=== PATIENT | female | born 1990 ===

== ENCOUNTER 2020-10-26 17:52 | Outpatient (REF) | payer OTHER, SELFPAY ==
[2020-10-26 18:34] LABS: Influenza A PCR NEGATIVE (Negative); Influenza B PCR NEGATIVE (Negative); Resp Syncy Virus RNA Qual PCR NEGATIVE (Negative); SARS COV2 PCR INHOUSE NEGATIVE (Negative)
== END 2020-10-26 17:53 | disposition home or self-care (01) ==
LOC: HO.LNP 17:52
PROVIDERS: Visit Provider Family Medicine
DX: Z20.822 Contact with and (suspected) exposure to COVID-19 (principal); H66.90 Otitis media, unspecified, unspecified ear
CPT/HCPCS: 0241U

== ENCOUNTER 2021-03-04 14:07 | Outpatient (REF) | payer OTHER, SELFPAY | END 2021-03-04 14:08 | disposition home or self-care (01) | LOC: HO.LAB 14:07 | PROVIDERS: Visit Provider Hospitalist | DX: J06.9 Acute upper respiratory infection, unspecified (principal); Z20.822 Contact with and (suspected) exposure to COVID-19 | CPT/HCPCS: U0003; U0005 ==

== ENCOUNTER 2021-06-07 10:06 | Outpatient (REF) | payer SELFPAY ==
[2021-06-07 14:49] LABS: Influenza A PCR NEGATIVE (Negative); Influenza B PCR NEGATIVE (Negative); Resp Syncy Virus RNA Qual PCR NEGATIVE (Negative); SARS COV2 PCR INHOUSE NEGATIVE (Negative)
== END 2021-06-07 10:07 | disposition home or self-care (01) ==
LOC: HO.LAB 10:06
PROVIDERS: Visit Provider Family Medicine
DX: Z20.822 Contact with and (suspected) exposure to COVID-19 (principal); B34.9 Viral infection, unspecified
CPT/HCPCS: 0241U

== ENCOUNTER 2022-05-11 09:27 | Outpatient (REF) | payer OTHER, SELFPAY ==
[2022-05-13 02:04] LABS: HPV mRNA E6/E7 rflx Not Detected (Not Detected)
== END 2022-05-11 09:28 | disposition home or self-care (01) ==
LOC: HO.LNP 09:27
PROVIDERS: Visit Provider Advanced Practice Midwife
DX: Z01.419 Encounter for gynecological examination (general) (routine) without abnormal findings (principal); Z11.51 Encounter for screening for human papillomavirus (HPV)
CPT/HCPCS: 87624; 88142

== ENCOUNTER 2022-05-11 10:30 | Outpatient (REF) | payer OTHER, SELFPAY ==
[2022-05-11 11:56] LABS: Hematocrit 38.7 % (37.0-47.0); Hemoglobin 13.2 g/dl (12.0-16.0); Mean Corpuscular HGB Conc 34.1 g/dl (31.0-35.0); Mean Corpuscular Hemoglobin 30.6 pg (27.0-33.0); Mean Corpuscular Volume 89.8 fL (80.0-98.0); Mean Platelet Volume 12.4 fL (9.4-12.3); Platelet Count 250 X10*3/uL (160-400); Red Blood Count 4.31 X10*6/uL (4.20-5.50); Red Cell Distribution Width 11.6 % (11.0-16.0); White Blood Count 8.6 X10*3/uL (4.8-10.8)
[2022-05-11 12:15] LABS: Glucose Random 83 mg/dL (60-115)
[2022-05-11 12:20] LABS: Thyroid Stimulating Hormone 0.56 uIU/mL (0.32-4.0)
[2022-05-11 12:22] LABS: HBsAGNum1 0.46 S/CO (0.00-0.99); HIV AB/AG Nonreactive (Nonreactive); HIV Num 1 0.05 S/CO (0.00-0.99); Hepatitis B Surface Antigen Negative (Negative); ~HepC Num1 0.13 S/CO (0.00-0.79); ~Hepatitis C Antibody Nonreactive (Nonreactive)
[2022-05-11 12:23] LABS: Syphilis Screen Nonreactive (Nonreactive)
[2022-05-11 13:39] LABS: CT PCR NOT DETECTED (Not Detect.); NG PCR NOT DETECTED (Not Detect.)
[2022-05-12 10:56] LABS: BV Int Neg Control Negative (Negative); BV Int Pos Control Positive (Positive)
[2022-05-12 18:49] LABS: Lutenizing Hormone 5.8 mIU/mL
[2022-05-12 19:58] LABS: DHEA Sulfate 222 mcg/dL (19-237)
[2022-05-17 17:09] LABS: Testosterone, Free 2.1 pg/mL (0.1-6.4); Testosterone, Total 31 ng/dL (2-45)
== END 2022-05-11 10:31 | disposition home or self-care (01) ==
LOC: HO.LAB 10:30
PROVIDERS: PCP Physician Assistant; Visit Provider Advanced Practice Midwife
DX: Z01.419 Encounter for gynecological examination (general) (routine) without abnormal findings (principal); Z11.4 Encounter for screening for human immunodeficiency virus [HIV]; E28.2 Polycystic ovarian syndrome; Z20.2 Contact with and (suspected) exposure to infections with a predominantly sexual mode of transmission; Z78.9 Other specified health status
CPT/HCPCS: 0353U; 82627; 82947; 83002; 84402; 84403; 84443; 85027; 86780; 86803; 87340; 87389; 87480; 87510; 87660

== ENCOUNTER 2023-05-17 09:01 | Outpatient (AMB) | payer OTHER, SELFPAY ==
--- NOTE | 2023-05-17 09:10 | A.OFFVIS_ITS ---
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: No Information Interpreted: non-clinical & clinical Mid Level Practitioner: Mid Level Practitioner Present (Aidyn) Allergies acetaminophen [Theraflu Day-Night Cold,Cough] Allergy (Unknown, Verified 05/17/23 09:14) anxiety bisacodyl [Dulcolax (bisacodyl)] Allergy (Unknown, Verified 05/17/23 09:14) vomiting dextromethorphan [Theraflu Day-Night Cold,Cough] Allergy (Unknown, Verified 05/17/23 09:14) Anxiety diphenhydramine [Theraflu Day-Night Cold,Cough] Allergy (Unknown, Verified 05/17/23 09:14) Anxiety phenylephrine [Theraflu Day-Night Cold,Cough] Allergy (Unknown, Verified 05/17/23 09:14) Anxiety pseudoephedrine [Sudafed] Allergy (Unknown, Verified 05/17/23 09:14) vomiting Medication List - Last Reconciled 05/17/23 by Josiane Dobbins CNM clindamycin-benzoyl peroxide 1.2 %(1 % base) -5 % 1 appl topical DAILY loratadine (Allergy Relief (loratadine)) 10 mg PO DAILY Is last menstrual period known: Yes Last menstrual period: 04/22/23 Post menopausal: No HPI Annual HPI Details Patient is here for stucco plasterer annual exam. She has no current complaints though she has been noticing little twinges right and left side. She has been noticing for route 6 months coincidentally around 6 months ago she stopped using the patch for control she had an what she calls an allergic reaction to the patch and had a rash where it was she denies a history of eczema however she does have dry skin and with some eczematous features and it was previously noted in the chart. She does get very dry skin in the winter. Anyway she stopped the patch and she was not sexually active so she does not need anything now and has not been sexually active since then she is open to STI testing. She had a negative Pap smear last year and she thought she had an abnormal Pap in the past and Dr. Mejia tried to do follow-up testing but she kept bleeding and he could not get in so he ended up putting Monsel's solution on and said they would just watch and wait review of the records reveals no abnormal Pap in the system. It appears that he was planning to do a 8 in endometrial biopsy because of her abnormal bleeding pattern related to her PCOS. If the patient became sexually active again she would use condoms she is averse to having anything inside her like an IUD or even tampons, she thinks she gets regular periods now though the last 1 was a couple of weeks late she was under stress because of her sick dog. PFSH Surgical History Hx of tonsillectomy Social History Alcohol intake: current Alcohol intake frequency: holidays/special occasions only Female Reproductive History Menstrual Age of Menarche: 13 Duration of menses: 3-5 days Date of last menstrual period: 04/22/23 control method: none Total pregnancies: 0 Date of last pap smear: 05/11/22 (negative) History of abnormal pap smear: No Physical Exam Vital Signs: Last Vital Signs BP 116/72 05/17/23 09:13 BMI result Body Mass Index 24.7 Const General: healthy appearing, comfortable, no acute distress, well developed and alert Nutritional Appearance: average body habitus Orientation/consciousness: patient oriented x3 Limitations: no limitations HEENT Head: Yes normocephalic Neck Neck: Yes normal visual inspection Chest Chest palpation & inspection: normal inspection of the chest Breast/axilla inspection: normal inspection of the breasts and normal inspection of the axillae Breast/axilla palpation: normal palpation of the breasts and normal palpation of the axillae Resp Effort & Inspection: normal respiratory effort GI Inspection: Yes normal to inspection, No Abdominal wall edema and No distended Palpation (GI): Soft to palpation and nontender General: Yes bladder normal to palpation External Female Exam: normal external appearance and normal appearance of the urethra Speculum Exam - Vagina: normal appearance of the vagina, normal palpation and normal vaginal discharge Speculum Exam - Cervix: normal appearance of the cervix, normal palpation and nontender Bimanual exam- vagina & uterus: normal bimanual exam, normal palpation, uterine size normal, bladder normal to palpation, consistency normal, normal palpation, uterine mobility normal, uterine shape normal, No Cervical tenderness present, non-tender and no cervical motion tenderness Bimanual Exam- Adnexa, other: normal adnexae, no masses, normal and No adnexal tenderness Neuro General: patient oriented x3 Assessment & Plan Assessment & Plan (1) Cervical cancer screening: Comment: Patient states history of abnormal.NO HX OF ABNL FOUND, FIRST PAP NEG 2014 .. 05/11/2022 Pap is negative with negative HPV. Code(s): Z12.4 - Encounter for screening for malignant neoplasm of cervix (2) Well woman exam with routine gynecological exam: Code(s): Z01.419 - Encounter for gynecological examination (general) (routine) without abnormal findings (3) Potential exposure to STD: Code(s): Z20.2 - Contact with and (suspected) exposure to infections with a predominantly sexual mode of transmission (4) History of PCOS: Code(s): Z87.42 - Personal history of other diseases of the female genital tract (5) Eczematous dermatitis: Code(s): L30.9 - Dermatitis, unspecified Plan Please see HPI for the full discussion of this visit. Teaching done about normal cycles and ovulation and what it feels like and also cervical mucus changes throughout the cycle in the absence of hormonal method of control. Patient appears to be in luteal phase currently though her jocelyn is telling her something different LMP 04/22/2023 -----Discussed in this visit the following: healthy balanced diet, regular and consistent exercise, getting recommended health screens, doing the best she can for her particular health concerns, kegel exercises, pap smear screening and followup recommendations, mammography screening and SBE, normal changes in cycles in her life stage--- . Orders: Orders Hepatitis B Surface Antigen Today Z20.2 - Contact with and (suspected) exposure to infections with a predominantly sexual mode of transmission Hepatitis C Antibody Today Z20.2 - Contact with and (suspected) exposure to infections with a predominantly sexual mode of transmission HIV Ab/Ag Today Z20.2 - Contact with and (suspected) exposure to infections with a predominantly sexual mode of transmission Syphilis Screen Today Z20.2 - Contact with and (suspected) exposure to infections with a predominantly sexual mode of transmission Coding Level of Care Code Est Pt Prev Care [id number]([id number]) Diagnoses Cervical cancer screening Z12.4 Well woman exam with routine gynecological exam Z01.419 Potential exposure to STD Z20.2 History of PCOS Z87.42 Eczematous dermatitis L30.9
[2023-05-17 09:13] VITALS: BP 116/72; BMI 24.7
== END 2023-05-17 10:04 | disposition home or self-care (01) ==
PROVIDERS: Visit Provider Advanced Practice Midwife
DX: Z12.4 Encounter for screening for malignant neoplasm of cervix (principal); Z01.419 Encounter for gynecological examination (general) (routine) without abnormal findings; Z20.2 Contact with and (suspected) exposure to infections with a predominantly sexual mode of transmission; Z87.42 Personal history of other diseases of the female genital tract; L30.9 Dermatitis, unspecified
CPT/HCPCS: 99395

== ENCOUNTER 2023-05-17 09:01 | Outpatient (REF) | payer OTHER, SELFPAY ==
[2023-05-18 11:31] LABS: CT PCR NOT DETECTED (Not Detect.); NG PCR NOT DETECTED (Not Detect.)
[2023-05-18 15:42] LABS: BV Int Neg Control Negative (Negative); BV Int Pos Control Positive (Positive)
== END 2023-05-17 09:02 | disposition home or self-care (01) ==
LOC: HO.LNP 09:01
PROVIDERS: Visit Provider Advanced Practice Midwife
DX: Z20.2 Contact with and (suspected) exposure to infections with a predominantly sexual mode of transmission (principal)
CPT/HCPCS: 0353U; 87480; 87510; 87660

== ENCOUNTER 2023-05-17 10:08 | Outpatient (REF) | payer OTHER, SELFPAY ==
[2023-05-17 12:45] LABS: HBsAGNum1 0.42 S/CO (0.00-0.99); HIV AB/AG Nonreactive (Nonreactive); HIV Num 1 0.06 S/CO (0.00-0.99); Hepatitis B Surface Antigen Negative (Negative); ~HepC Num1 0.11 S/CO (0.00-0.79); ~Hepatitis C Antibody Nonreactive (Nonreactive)
[2023-05-17 12:50] LABS: Syphilis Screen Nonreactive (Nonreactive)
== END 2023-05-17 10:09 | disposition home or self-care (01) ==
LOC: HO.HHCL 10:08
PROVIDERS: Visit Provider Advanced Practice Midwife
DX: Z11.4 Encounter for screening for human immunodeficiency virus [HIV] (principal); Z20.2 Contact with and (suspected) exposure to infections with a predominantly sexual mode of transmission
CPT/HCPCS: 36415; 86780; 86803; 87340; 87389

== ENCOUNTER 2023-08-23 17:52 | Emergency (ER) | payer OTHER, SELFPAY ==
--- NOTE | ~2023-08-23 | US_ITS ---
EXAMINATION: US PELVIS CLINICAL INFORMATION: Question of ovarian torsion COMPARISON: None available. TECHNIQUE: Ultrasound of the pelvis is performed using both transabdominal and transvaginal transducers along with Doppler. Transvaginal imaging is performed due to inadequate visualization transabdominally. FINDINGS: Uterus: The uterus is anteverted and measures 6.6 x 2.9 x 3.7 cm. The double wall endometrial thickness is 4 mm. The uterus is smooth in contour and has normal myometrial echogenicity. No visible fibroid. Nabothian cysts are present in the cervix. Adnexa: Both ovaries are visualized. There is normal color flow to the adnexa. There is no ovarian torsion. There is no pelvic ascites or fluid collection. Right ovary measures 3.4 x 1.9 x 1.8 cm for a volume of 6.1 mL Left ovary measures 2.5 x 2.0 x 1.9 cm. For a volume of 5.0 mL US/US pelvic ovarian doppler IMPRESSION: Normal exam. No evidence of ovarian torsion.
--- NOTE | ~2023-08-23 | US_ITS ---
EXAMINATION: US PELVIS CLINICAL INFORMATION: Question of ovarian torsion COMPARISON: None available. TECHNIQUE: Ultrasound of the pelvis is performed using both transabdominal and transvaginal transducers along with Doppler. Transvaginal imaging is performed due to inadequate visualization transabdominally. FINDINGS: Uterus: The uterus is anteverted and measures 6.6 x 2.9 x 3.7 cm. The double wall endometrial thickness is 4 mm. The uterus is smooth in contour and has normal myometrial echogenicity. No visible fibroid. Nabothian cysts are present in the cervix. Adnexa: Both ovaries are visualized. There is normal color flow to the adnexa. There is no ovarian torsion. There is no pelvic ascites or fluid collection. Right ovary measures 3.4 x 1.9 x 1.8 cm for a volume of 6.1 mL Left ovary measures 2.5 x 2.0 x 1.9 cm. For a volume of 5.0 mL US/US pelvic and transvaginal IMPRESSION: Normal exam. No evidence of ovarian torsion.
[2023-08-23 18:08] VITALS: BP 139/85; PULSE 85; RESP 18; TEMP 36.9; O2SAT 99; BMI 24.8
--- NOTE | 2023-08-23 18:10 | ED_ITS ---
HPI - Female Genitourinary General Chief complaint: Urogenital-Female Stated complaint: pelvic pain, brown discharge Time Seen by Provider: 08/23/23 18:37 Source: patient Mode of arrival: ambulatory Limitations: no limitations History of Present Illness HPI Narrative: Patient is a 32-year-old female who presents emergency department for evaluation. She reports her last menstrual cycle was 08/01/2023. She reports over the past 2 days she began having brown vaginal discharge which is atypical for her midcycle despite her history of PCOS. She endorses increased vaginal discharge yesterday and today she began having left lower pelvic pain. She notices the pain to decrease slightly when she is sitting but if she is standing it becomes a constant dull pain. She reports that she has not been sexually active for at least 1 year and denies concern for sexually transmitted infections or . She denies fevers, chills, nausea, vomiting, back pain, dysuria, urinary frequency/urgency/hesitancy, constipation, diarrhea. She reports that she was evaluated at urgent care prior to arrival was advised to come to the emergency department to rule out ovarian torsion given her history of PCOS. Denies history of abnormal Pap smear Related Data Home Medications ?Medication ?Instructions ?Recorded ?Confirmed loratadine 10 mg tablet (Allergy 10 mg PO DAILY 10/26/20 05/17/23 Relief (loratadine)) clindamycin 1.2 % (1 % 1 appl topical DAILY 05/17/23 05/17/23 base)-benzoyl peroxide 5 % topical gel Allergies Allergy/AdvReac Type Severity Reaction Status Date / Time acetaminophen Allergy Unknown anxiety Verified 08/23/23 18:15 [Theraflu Day-Night Cold,Cough] bisacodyl Allergy Unknown vomiting Verified 08/23/23 18:15 [Dulcolax (bisacodyl)] dextromethorphan Allergy Unknown Anxiety Verified 08/23/23 18:15 [Theraflu Day-Night Cold,Cough] diphenhydramine Allergy Unknown Anxiety Verified 08/23/23 18:15 [Theraflu Day-Night Cold,Cough] phenylephrine Allergy Unknown Anxiety Verified 08/23/23 18:15 [Theraflu Day-Night Cold,Cough] pseudoephedrine [Sudafed] Allergy Unknown Anxiety Verified 08/23/23 18:15 Review of Systems 2 Review of Systems: Yes all other systems are reviewed and are negative [facility] Past Medical History Attestation statement: The following information was validated with the patient. Source: old records reviewed Surgical History Hx of tonsillectomy Social History Social History Alcohol intake: current Alcohol intake frequency: holidays/special occasions only Advance Directives: No Advance Directives Information Provided: No Do you have a plan to hurt others: No Plan Physical Exam 2 Vital Signs: Vital Signs: Last Vital Signs Temp 98.5 F 08/23/23 22:50 Pulse 80 08/23/23 22:50 Resp 20 08/23/23 22:50 BP 115/75 08/23/23 22:50 Pulse Ox 98 08/23/23 22:50 O2 Del Method Room Air 08/23/23 22:50 BMI result Body Mass Index 24.8 Appearance: Alert.?Oriented to person, place and time. No acute distress.?Normal affect. Eyes: Pupils equal, round and reactive to light.? ENT: Pharynx normal.?? Neck: Normal inspection.? Neck supple.?? CVS: Heart sounds normal. Normal heart rate and rhythm.? Pulses normal.?? Respiratory: No respiratory distress.? Lung sounds clear to auscultation bilaterally?? Abdomen: Soft with mild left lower quadrant tenderness upon palpation. Normoactive bowel sounds. No CVA tenderness Genitourinary:? Supervised by ED orthodontic technician assistant Marti. Normal external appearance of urethra.? No lesions/lacerations or discharge or tenderness noted. No Bartholin cyst noted.? Speculum exam: normal appearance/palpation of vagina normal. Brown tinged mucosal vaginal discharge. without vaginal swelling, erythema, laceratons.?No foreign bodies noted.? No vaginal tenderness noted.? Normal appearance of cervix. Normal palpation of cervix.? Cervical os is closed.? No abnormal cervical discharge noted.? No cervical lesion/mass.?? No cervical motion tenderness noted.? Negative chandelier sign.? Normal bimanual exam.? Uterine size normal. Uterine consistency normal.? Bladder normal to palpation. Normal adnexa. Normal rectovaginal exam. Skin: Skin warm and dry.? Normal skin color.? Extremities: No lower extremity edema.? Neuro: Moves all extremities spontaneously. Sensation intact bilaterally. Ambulates with normal steady gait. Course Course Course Narrative: This is a Rapid Medical Examination (RME) performed by Myranda Anthony PA-C in triage. Full HPI, ROS, assessment and treatment plan per primary provider in the Main ED. 32 yo female hx of PCOS here for eval of brown vaginal discharge x2 days and left sided pelvic pain which began today. Pelvic pain exacerbated with standing for long periods of time. seen at who sent her here for ovarian torsion r/o. reports 5/10 pelvic pain. LMP 08/01/23. She is not currently sexually active and does not use control. denies n/v, fever, chills. well appearing in triage. slightly ttp of left lower abdomen without rebound or guarding. Plan: labs, UA, pelvic ultrasound ordered Reevaluation(s) Reevaluation #1: Pelvic ultrasound without evidence of ovarian torsion, normal examination, no evidence of ruptured ovarian cyst. Suspect this is less likely acute abdominal pathology diverticulitis, colitis, obstruction, would defer CT of the abdomen and pelvis. She is tolerating oral intake. Urinalysis reveals no evidence of infection. At this time feel that she is stable for discharge home and outpatient follow-up with primary care/physician gynecologist provider. Medical Decision Making Medical Decision Making MDM Narrative: Patient is a 32-year-old female past medical history PCOS presenting to emergency department for evaluation of left lower quadrant abdominal pain and abnormal vaginal discharge as per HPI. Overall she appears well, nontoxic, afebrile. She has been tolerating oral intake. She has mild tenderness upon palpation and left lower quadrant but is without rigidity guarding, no rebound tenderness. Pelvic examination as per physical exam portion of this note, noted brown tinged mucosal discharge within the vaginal vault and surrounding the cervix. Cervix is not friable, without signs of acute cervicitis. Patient was amenable to having bacterial vaginosis panel/CT/NG burn/ecchymosis testing. Reviewed serum labs CBC is without leukocytosis anemia or thrombocytopenia. No electrolyte derangement. No CLAUS. LFTs within normal range lipase within normal range. Differential Diagnosis Differential Diagnoses: The differential diagnosis associated with the presentation includes (Ovulatory discharge, PCOS, ruptured ovarian cyst, ovarian torsion, STI. Examination does not appear consistent with PID.) Admission/Observation Consideration of admission/observation: Escalation of care including admission/observation considered Lab Data MDM Lab Attestation statement: I reviewed the patient's lab results. (See narrative above) 08/23/23 18:49 08/23/23 18:49 Labs: Lab Results 08/23/23 08/23/23 Range/Units 18:49 21:57 WBC 9.7 (4.8-10.8) X10*3/uL RBC 4.21 (4.20-5.50) X10*6/uL Hgb 13.2 (12.0-16.0) g/dl Hct 38.6 (37.0-47.0) % MCV 91.7 (80.0-98.0) fL MCH 31.4 (27.0-33.0) pg MCHC 34.2 (31.0-35.0) g/dl RDW 11.8 (11.0-16.0) % Plt Count 251 (160-400) X10*3/uL MPV 11.8 (9.4-12.3) fL Immature Gran % (Auto) 0.2 (0.0-0.4) % Neut % (Auto) 53.4 (45-73) % Lymph % (Auto) 33.2 (20-40) % [place] % (Auto) 7.7 (2-11) % Eos % (Auto) 4.5 H (0-4) % Baso % (Auto) 1.0 (0-2) % Lymph # (Auto) 3.2 (1.2-4.9) X10*3/uL [place] # (Auto) 0.8 (0.1-1.2) X10*3/uL Eos # (Auto) 0.4 (0.0-0.4) X10*3/uL Baso # (Auto) 0.1 (0.0-0.2) X10*3/uL Abs Immat Gran (auto) 0.02 (0.00-0.03) X10*3/uL Absolute Neuts (auto) 5.2 (2.0-8.3) x10*3/uL Absolute Nucleated RBC 0.000 (0.0-0.012) X10*3/uL Nucleated RBC % (auto) 0.0 (0.0-0.2) /100WBC Sodium 141 (135-145) mmol/L Potassium 4.2 (3.3-5.1) mmol/L Chloride 106 (96-108) mmol/L Carbon Dioxide 24 (22-29) mmol/L Anion Gap 15 (12-20) BUN 13 (9-16) mg/dL Creatinine 0.77 (0.5-1.4) mg/dL Estim Creat Clear Calc 94.4 Estimated GFR > 60 Random Glucose 84 (60-115) mg/dL Calcium 9.8 (8.4-10.2) mg/dL Magnesium 1.8 (1.6-2.6) mg/dL Total Bilirubin 0.2 (0.0-1.0) mg/dL AST 19 (5-31) U/L ALT 15 (0-31) U/L Alkaline Phosphatase 61 (39-117) U/L Total Protein 8.5 H (6.5-8.0) g/dL Albumin 4.4 (3.5-5.0) g/dL Lipase 34 (8-78) U/L Urine Color Yellow Urine Appearance Clear Urine pH 6.5 (5.0-9.0) Ur Specific [place] 1.020 (1.005-1.025) Urine Protein Negative (Neg-Trace) mg/dL Urine Glucose (UA) Negative (Negative) mg/dL Urine Ketones Negative (Negative) mg/dL Urine Blood Small (1+) H (Negative) Urine Nitrite Negative (Negative) Ur Leukocyte Esterase Negative (Negative) Urine RBC 0-2 (0-2) /HPF Urine WBC 0-5 (0-5) /HPF Ur Squamous Epith Cells 0-2 (0-2) /HPF Urine Bacteria None Seen (None Seen) Hyaline Casts 0-2 (0-2) /LPF Urine Test NEGATIVE (NEGATIVE) Radiology Impression Discussion of test interpretation with radiology: I have reviewed the radiologist's reading. External Record Review External record reviewed: Outpatient record Discharge Plan Discharge Clinical Impression: Bloody vaginal discharge Patient Disposition: Home, Self-Care Instructions: Vaginal Discharge (ED) Additional Instructions: No evidence of ovarian torsion on ultrasound, no large cysts. As discussed, testing for infections will not result today, there any upon presents you will be contacted by the hospital. Follow-up with your PCP/physician gynecologist provider. Prescriptions: No Action loratadine [Allergy Relief (loratadine)] 10 mg tablet 10 mg PO DAILY clindamycin-benzoyl peroxide 1.2 %(1 % base) -5 % gel 1 appl topical DAILY Interventions: ED Discharge Assessment Last Done: 08/23/23 22:50 Discharge Date/Time: 08/23/23 22:51 Print Language: Bulgarian
[2023-08-23 18:57] LABS: MANUAL DIFF FLAG NO
[2023-08-23 18:58] LABS: Basophils Absolute Auto 0.1 X10*3/uL (0.0-0.2); Eosinophils Absolute Auto 0.4 X10*3/uL (0.0-0.4); Eosinophils Percent Auto 4.5 % (0-4); Hematocrit 38.6 % (37.0-47.0); Hemoglobin 13.2 g/dl (12.0-16.0); Imm Gran Abs Auto 0.02 X10*3/uL (0.00-0.03); Imm Gran Pct Auto 0.2 % (0.0-0.4); Lymphocytes Absolute Auto 3.2 X10*3/uL (1.2-4.9); Lymphocytes Percent Auto 33.2 % (20-40); Mean Corpuscular HGB Conc 34.2 g/dl (31.0-35.0); Mean Corpuscular Hemoglobin 31.4 pg (27.0-33.0); Mean Corpuscular Volume 91.7 fL (80.0-98.0); Mean Platelet Volume 11.8 fL (9.4-12.3); Monocytes Absolute Auto 0.8 X10*3/uL (0.1-1.2); Monocytes Percent Auto 7.7 % (2-11); Neutrophils Absolute Auto 5.2 x10*3/uL (2.0-8.3); Neutrophils Percent Auto 53.4 % (45-73); Platelet Count 251 X10*3/uL (160-400); Red Blood Count 4.21 X10*6/uL (4.20-5.50); Red Cell Distribution Width 11.8 % (11.0-16.0); White Blood Count 9.7 X10*3/uL (4.8-10.8)
[2023-08-23 19:14] LABS: Alanine Aminotransferase 15 U/L (0-31); Albumin Level 4.4 g/dL (3.5-5.0); Alkaline Phosphatase 61 U/L (39-117); Anion Gap 15 (12-20); Aspartate Amino Transferase 19 U/L (5-31); Bilirubin Total 0.2 mg/dL (0.0-1.0); Blood Urea Nitrogen 13 mg/dL (9-16); Calcium 9.8 mg/dL (8.4-10.2); Carbon Dioxide 24 mmol/L (22-29); Chloride 106 mmol/L (96-108); Creatinine Clr Calc Pharmacy 94.4; Estimated Glomerular Filt Rate > 60; Glucose Random 84 mg/dL (60-115); Lipase 34 U/L (8-78); Magnesium 1.8 mg/dL (1.6-2.6); Potassium 4.2 mmol/L (3.3-5.1); Sodium 141 mmol/L (135-145); Total Protein 8.5 g/dL (6.5-8.0)
[2023-08-23 22:07] LABS: Appearance Urine Clear; Color Urine Yellow; Glucose Urine UA Negative (Negative); Leukocyte Esterase Urine Negative (Negative); Nitrite Urine Negative (Negative); PH 6.5 (5.0-9.0); UMIC TRIGGER UACC YES; Urine Blood Small (1+) (Negative); Urine Ketones Negative (Negative); Urine Protein Negative (Neg-Trace)
[2023-08-23 22:10] LABS: UPreg QC Valid YES; Urine Pregnancy NEGATIVE (NEGATIVE)
[2023-08-23 22:33] VITALS: BP 115/75; PULSE 80; RESP 20; TEMP 36.9; O2SAT 98
[2023-08-23 22:50] VITALS: BP 115/75; PULSE 80; RESP 20; TEMP 36.9; O2SAT 98
[2023-08-23 22:54] LABS: Bacteria Urine None Seen (None Seen); Hyaline Casts Urine 0-2 /LPF (0-2); RBC Urine 0-2 /HPF (0-2); Squamous Epithelial Cell Urine 0-2 /HPF (0-2); WBC Urine 0-5 /HPF (0-5)
[2023-08-24 06:07] LABS: CT PCR NOT DETECTED (Not Detect.); NG PCR NOT DETECTED (Not Detect.)
[2023-08-24 10:49] LABS: Bacterial Vaginosis PCR NEGATIVE (Negative); Candida Group PCR NOT DETECTED (Not Detect); Candida glab krusei PCR NOT DETECTED (Not Detect); Trichomonas vaginalis PCR NOT DETECTED (Not Detect)
== END 2023-08-23 22:51 | disposition home or self-care (01) ==
PROVIDERS: Nurse Practitioner Family; Physician Assistant Medical; Emergency Provider Internal Medicine
DX: N89.8 Other specified noninflammatory disorders of vagina (principal); E28.2 Polycystic ovarian syndrome; N88.8 Other specified noninflammatory disorders of cervix uteri; R10.2 Pelvic and perineal pain
CPT/HCPCS: 0352U; 36415; 76830; 76856; 80053; 81001; 81025; 83690; 83735; 85025; 87491; 87591; 93975; 99283; 99284

== ENCOUNTER 2023-11-17 10:13 | Outpatient (AMB) | payer OTHER, SELFPAY ==
--- NOTE | 2023-11-17 10:18 | MHC.PC.OV ---
Vital Signs 11/17/23 10:30 Height 5 ft 5 in Weight 154 lb 2 oz BMI 25.6 BP 112/78 Blood Pressure Location Lt brachial Position Sitting Respiration 16 Pulse 96 Pulse Source Pulse Oximeter Temp 97.9 F Temp Source Oral Pulse Oximetry (%) 96 Oxygen Delivery Method Room Air Intake Visit Reasons: Annual Physical Intake Note: patient here for new patient visit and to establish care. 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 Is last menstrual period known: Yes Last menstrual period: 09/18/23 Post menopausal: No Patient : No Allergies acetaminophen [Theraflu Day-Night Cold,Cough] Allergy (Unknown, Verified 11/17/23 10:33) anxiety bisacodyl [Dulcolax (bisacodyl)] Allergy (Unknown, Verified 11/17/23 10:33) vomiting dextromethorphan [Theraflu Day-Night Cold,Cough] Allergy (Unknown, Verified 11/17/23 10:33) Anxiety diphenhydramine [Theraflu Day-Night Cold,Cough] Allergy (Unknown, Verified 11/17/23 10:33) Anxiety phenylephrine [Theraflu Day-Night Cold,Cough] Allergy (Unknown, Verified 11/17/23 10:33) Anxiety pseudoephedrine [Sudafed] Allergy (Unknown, Verified 11/17/23 10:33) Anxiety Medication List - Last Reconciled 11/17/23 by Bennett Parr CNP clindamycin-benzoyl peroxide 1.2 %(1 % base) -5 % 1 appl topical DAILY fluticasone propionate 50 mcg/actuation 2 sprays intranasal DAILY loratadine (Allergy Relief (loratadine)) 10 mg PO DAILY spironolactone 50 mg PO BID Tobacco use date assessed: 11/17/23 Dental Screening Dental Screen Date: 11/17/23 Did you have a dental visit in the last 12 months?: No Did you have a dental problem in the last 6 months where you did not have access to dental care?: No Was dental information given to patient?: Patient declined HPI HPI Comments History of Present Illness Details New patient Prior PCP:?Transfer [facility] Last office visit/CPE: Over 2 years Acute issue(s): Acne -She is on Spironolactone 50 mg twice daily, and clindamycin-benzoyl peroxide ointment PCOS -She is on Spironolactone 50 mg twice daily Left ankle sprain -She tripped on the steps in her home 3 weeks ago. She was evaluated in an urgent care, xray was normal. Reports dull pain to the ankle; taking Tylenol and Ibuprofen Anxiety/depression -Reports controlled anxiety and depressive symptoms. Have never been on psychotropic medications. Reports history of psychotherapy at childhood and 5-6 years ago; she does not have time to continue psychotherapy -Sleep has been an issue. She has trouble falling asleep. She sleeps an average of 7-8 hours and generally feels tired She notes that she does not make healthy dietary choices. She snacks a lot and consume significant amount of soda drinks She reports recurrent sinus infection. Her nasal discharges are often bloody. No acute symptoms at this time. She requests an ENT referral PMHx: PCOS, acne, GERD, IBS, sinusitis, anxiety, depression, eating disorder SurgHx: Tonsillectomy, tympanostomy, FESS FHx: Mom: Asthma. MGM: HDL, HTN, mental illness. MGF: HTN, HLD, DM, prostate cancer, alcoholism SocHx: Nonsmoker. Drinks alcohol 1 drink every 3-6 months. No recreational drugs Last eye exam was at childhood Last Pap smear test was in 05/11/2022 Last Tdap was in 08/15/2018 She is followed by [facility] [place] [facility] Medical History (Updated 11/17/23 @ 12:11 by Bennett Parr CNP) Depression Anxiety Acid reflux IBS (irritable bowel syndrome) Acne Sprained ankle Sinusitis Surgical History (Updated 11/17/23 @ 11:10 by Oneyda Cazares) H/O tympanostomy S/P FESS (functional endoscopic sinus surgery) Hx of tonsillectomy Family History (Updated 11/17/23 @ 11:17 by Oneyda Cazares) Maternal Grandfather Alcohol abuse High blood pressure High cholesterol Diabetes Prostate cancer Brother FH: mental illness Mother Asthma Maternal Grandmother High blood pressure High cholesterol FH: mental illness Social History Housing: House Alcohol intake: current Alcohol intake frequency: holidays/special occasions only Patient Tobacco Use Status: Never used Tobacco e-Cigarette/Vaping Use: Never Used Second Hand Smoke Exposure: No service: No Current occupational status: employed Current occupation: [employer] Current occupational exposures/hazards: No Cognitive needs: No Hearing needs: Yes Vision needs: No Female Reproductive History Menstrual Age of Menarche: 13 Date of last menstrual period: 09/18/23 Questionnaire PHQ-9 Over the last 2 weeks, how often have you been bothered by any of the following problems? 1. Little interest or pleasure in doing things: several days 2. Feeling down, depressed, or hopeless: several days 3. Trouble falling or staying asleep, or sleeping too much: more than half the days 4. Feeling tired or having little energy: nearly every day 5. Poor appetite or overeating: several days 6. Feeling bad about yourself - or that you are a failure or have let yourself or your family down: several days 7. Trouble concentrating on things, such as reading the newspaper or watching television: more than half the days 8. Moving or speaking so slowly that other people could have noticed. Or the opposite - being so fidgety or restless that you have been moving around a lot more than usual: more than half the days 9. Thoughts that you would be better off or of hurting yourself in some way: not at all Total score: 13 Depression Screening Interpretation: Positive Depression Screening Follow-up: Existing condition Depression Screening Done: Yes [id number] - PHQ-9 Billing: Yes Source: Developed by Drs. Christopher Ramos, Elva Kaplan, Zi Moore and colleagues, with an educational mally from [employer]. Thrive Questionnaire Date Thrive assessed: 11/17/23 I am a: Patient What is your living situation today?: I have a steady place to live Within the past 12 months, did the food you bought not last and you didn't have the money to get more?: Never true Within the past 12 months, did you worry whether your food would run out before you got money to buy more?: Never true Do you have trouble paying for medicines?: No Do you have trouble getting transportation to medical appointments?: No Do you have trouble paying your heating and electricity bill?: No Do you have trouble taking care of your child, family member or friend?: No Do you have trouble with day-to-day activities such as bathing, preparing meals, shopping, managing finances, etc.?: No Are you currently unemployed and looking for a job?: No Are you interested in more education?: No Please select the resources that you would like help with: None Currently or been in a relationship where the following occur: No concerns reported THRIVE Score: 0 AUDIT C Alcohol Use Questionnaire (AUDIT-C) 1. How often do you have a drink containing alcohol?: Monthly or less 2. How many drinks containing alcohol do you have on a typical day when you are drinking?: 1 or 2 3. How often do you have six or more drinks on one occasion?: Never Total Score: 1 AZ-7 AMB Questionnaire AZ-7 Date AZ - 7 assessed: 11/17/23 Feeling nervous, anxious, or on edge: 1 = Several days Not being able to stop or control worryin = Several days Worrying too much about different things: 2 = More than half the days Trouble relaxin = Nearly every day Being so restless that it is hard to sit still: 1 = Several days Becoming easily annoyed or irritable: 0 = Not at all Feeling afraid as if something awful might happen: 1 = Several days Total AZ-7 score (0-4 normal; 5-9 mild; 10-14 moderate; 15-21 severe): 9 Source: Developed by Drs. Christopher Ramos, Elva Kaplan, Zi Moore and colleagues, with an educational mally from [employer]. AZ-7 Assessment Billing AZ-7 Assessment Tool: AZ-7 Assessment 44708 Review of Systems Const Details: Denies chills, Reports fatigue, Denies fever(s), Denies headache(s) and Denies weakness HEENT Denies change in vision, Denies dizziness, Denies headache(s), Denies hearing loss, Denies nasal congestion, Denies sinus pain, Denies sinus pressure and Denies sore throat Card Denies chest pain, Denies lightheadedness, Denies dyspnea and Denies other (palpitations) Resp Denies cough, Denies dyspnea and Denies wheezing GI Denies abdominal pain, Denies melena, Denies hematochezia, Denies change in bowel habits, Denies dyspepsia and Denies nausea Denies hematuria and Denies dysuria Musc Denies abnormal gait, Denies numbness and Denies tingling Skin/Breast Denies rash, Denies unusual bruising and Denies wounds Neuro Denies abnormal gait, Denies dizziness, Denies headache(s), Denies memory loss, Denies numbness, Denies Sensory deficit (Neuro), Denies tingling and Denies weakness Psych Denies anxiety, Denies depression and Denies memory loss Endo Denies cold intolerance, Denies fatigue, Denies heat intolerance, Denies polydipsia and Denies polyuria Phi/Lymph Denies easy bleeding and Denies easy bruising Aller/Immun Denies wheezing Physical exam (Primary Care) Vital Signs: Last Vital Signs Temp 97.9 F 11/17/23 10:30 Pulse 96 11/17/23 10:30 Resp 16 11/17/23 10:30 BP 112/78 11/17/23 10:30 Pulse Ox 96 11/17/23 10:30 Oxygen Delivery Method Room Air 11/17/23 10:30 BMI result Body Mass Index 25.6 Tobacco/Smoking Status: Tobacco use Status Tobacco use date assessed 11/17/23 11/17/23 10:29 Patient Tobacco Use Status Never used Tobacco 11/17/23 10:29 e-Cigarette/Vaping Use Never Used 11/17/23 10:29 PHQ-9: PHQ-9 Score PHQ-9: Total score 13 11/17/23 11:17 Depression Screening Interpretation: Positive Depression Screening Follow-up: Existing condition Thrive Assessment: Date of Thrive Assessment Date Thrive assessed 11/17/23 11/17/23 10:36 Currently or been in a relationship where the following occur: No concerns reported Const Other: General: no acute distress, well developed, alert and awake Nutritional Appearance: well nourished Orientation/consciousness: patient oriented x3 HENMT Head: Yes normocephalic and Yes atraumatic Ears: hearing grossly normal bilaterally and TM's normal bilaterally General nose exam: Normal external nose present and Normal nares present Mouth: Normal oral and palatal mucosa present and moist mucous membranes Teeth and gingiva: dentition normal Throat: Yes oropharynx normal Eyes Pupils: Equal, round and reactive pupils present and Pupil accommodation reflex normal EOM: EOMs intact bilaterally Neck Neck: Yes normal visual inspection, Yes no lymphadenopathy and Yes trachea midline Thyroid: Thyroid normal Carotids: no bruits Lymphatic: no lymphadenopathy noted Chest Chest palpation & inspection: normal inspection of the chest Resp Effort & Inspection: normal respiratory effort Auscultation: clear to auscultation bilaterally Cardio Rate: regular rate Rhythm: regular rhythm Heart sounds: S1 normal heart sound present, S2 normal heart sound present, no gallops, no murmurs and no rubs Bruits: no abdominal aortic bruits and no carotid bruits GI Palpation (GI): No Abdominal aortic bruit present, Soft to palpation, nontender, No hepatosplenomegaly present and No Rebound tenderness present Auscultation: normal bowel sounds General: Yes no CVA tenderness Back/Spine/Pelvis Back: no CVA tenderness Cervical Spine: cervical ROM normal and No Cervical spine tenderness Thoracic/Lumbar Spine: thoraco-lumbar ROM normal, No pain with thoraco-lumbar ROM, No thoracic spinal tenderness and No lumbar spinal tenderness Skin General: warm and dry. Normal skin color. Normal skin turgor Lesions: no lesions Rashes: Facial acne Trauma: no lacerations or abrasions Wounds: no wounds Nails: normal Neuro General: patient oriented x3, gait normal and CN's II-XI intact bilaterally Cranial nerves: Yes Equal, round and reactive pupils present Cognition (Neuro): normal cognition Gait exam (Neuro): Normal gait present Motor exam (neuro): 5/5 motor strength present throughout Sensory Exam: No Sensory deficit (Neuro) Deep tendon reflexes (DTR's): Right patellar reflex intensity grade: 2+ and Left patellar reflex intensity grade: 2+ Extrem General: Yes normal to inspection, No edema and No calf tenderness Psych Appearance: grossly normal Affect: normal affect Attitude: cooperative Thought process: Normal thought process present Assessment and Plan Assessment & Plan (1) Normal physical examination, routine: Code(s): Z00.00 - Encounter for general adult medical examination without abnormal findings Plan: No significant physical restrictions or limitations noted Healthy diet and routine exercise encouraged Advised to establish with a dentist for routine dental care Encouraged to get lab work done and follow-up for telehealth visit in 2-3 weeks for labs review Return with symptoms or concerns Verbalized understanding and agreed with the treatment plan (2) History of PCOS: Code(s): Z87.42 - Personal history of other diseases of the female genital tract Plan: Continue current treatment regimen Followed by [facility] [place] (3) Acne: Code(s): L70.9 - Acne, unspecified Plan: Continue current treatment regimen Followed by [facility] [place] (4) Left ankle sprain: Code(s): S93.402A - Sprain of unspecified ligament of left ankle, initial encounter Plan: Tripped in the stairs of her home 3 weeks ago. Was seen at an urgent care; x-ray was normal. Reports dull pain to the ankle Normal ROM of the left ankle; no overt injury or trauma; gait is steady Continue to take Tylenol or ibuprofen as needed Warm/cool compresses encouraged Follow-up with worsening or new symptoms Verbalized understanding and agreed with the plan (5) Anxiety: Code(s): F41.9 - Anxiety disorder, unspecified Plan: Reports controlled anxiety and depressive symptoms. Sleep has been an issue; she has trouble falling asleep; she is usually tired despite sleeping an average of 7-8 hours nightly. She has never been on psychotropic medications. She has history of psychotherapy but declines psychotherapy at this time. She also declines psychotropic medications PHQ-9 and AZ-7 scores revealed moderate depression and mild anxiety respectively Routine exercise encouraged Will check labs for organic cause of her fatigue and make changes as needed She may inform her PCP if she changes her mind on psychotropic medications or psychotherapy referral Follow-up with worsening or new symptoms Verbalized understanding and agreed with the plan (6) Depression: Code(s): F32.A - Depression, unspecified Plan: Plan as above (7) Sleep disturbance: Code(s): G47.9 - Sleep disorder, unspecified Plan: Plan as above (8) Fatigue: Code(s): R53.83 - Other fatigue Plan: Reports as per HPI (9) History of sinusitis: Code(s): Z87.09 - Personal history of other diseases of the respiratory system Plan: Reports recurrent sinus infection. Her nasal discharges are often bloody. She requests an ENT referral No acute symptoms at this time Reports to [facility] (10) Eye exam, routine: Code(s): Z01.00 - Encounter for examination of eyes and vision without abnormal findings Plan: Last eye exam was at childhood Referred to Ophthalmology for routine eye exam (11) Laboratory tests ordered as part of a complete physical exam (CPE): Code(s): Z00.00 - Encounter for general adult medical examination without abnormal findings Plan: Fasting labs ordered as part of a complete physical exam. Advised to fast for at least 10 hours before getting labs drawn. May drink water Verbalized understanding and agreed with treatment plan. Orders: Orders Glucose Fasting Today Z00.00 - Encounter for general adult medical examination without abnormal findings TSH reflex Free T4 Today Z00.00 - Encounter for general adult medical examination without abnormal findings Lipid Panel Today Z00.00 - Encounter for general adult medical examination without abnormal findings Vitamin D 25-OH Total Today Z00.00 - Encounter for general adult medical examination without abnormal findings Referrals Ear/Nose/Throat Referral Z87.09 - Personal history of other diseases of the respiratory system Ophthalmology Referral Z01.00 - Encounter for examination of eyes and vision without abnormal findings Coding Level of Care Code New Pt Level 4 (97905) New Pt Prev Care 18-39yr(36830 Diagnoses Normal physical examination, routine Z00.00 History of PCOS Z87.42 Acne L70.9 Left ankle sprain S93.402A Anxiety F41.9 Depression F32.A Sleep disturbance G47.9 Fatigue R53.83 History of sinusitis Z87.09 Eye exam, routine Z01.00 Laboratory tests ordered as part of a complete physical exam (CPE) Z00.00 Additional Codes AZ-7 Assessment Billing - AZ-7 Assessment Tool: AZ-7 Assessment 10344 ([id number])
[2023-11-17 10:30] VITALS: BP 112/78; PULSE 96; RESP 16; TEMP 36.6; O2SAT 96; BMI 25.6
== END 2023-11-17 11:09 | disposition home or self-care (01) ==
PROVIDERS: Visit Provider Nurse Practitioner Family
DX: Z00.00 Encounter for general adult medical examination without abnormal findings (principal); S93.402A Sprain of unspecified ligament of left ankle, initial encounter; F32.A Depression, unspecified; F41.9 Anxiety disorder, unspecified; Z87.42 Personal history of other diseases of the female genital tract; L70.9 Acne, unspecified; G47.9 Sleep disorder, unspecified; R53.83 Other fatigue; Z87.09 Personal history of other diseases of the respiratory system

== ENCOUNTER → 2023-11-17 10:13 | Outpatient (BNVA) | payer OTHER, SELFPAY | PROVIDERS: Visit Provider Nurse Practitioner Family | DX: Z00.00 Encounter for general adult medical examination without abnormal findings (principal); L70.9 Acne, unspecified; S93.402D Sprain of unspecified ligament of left ankle, subsequent encounter; F41.9 Anxiety disorder, unspecified; F32.A Depression, unspecified; G47.9 Sleep disorder, unspecified; R53.83 Other fatigue; Z87.42 Personal history of other diseases of the female genital tract; Z87.09 Personal history of other diseases of the respiratory system | CPT/HCPCS: 96127 ==

== ENCOUNTER 2023-11-17 11:18 | Outpatient (REF) | payer OTHER, SELFPAY ==
[2023-11-17 14:48] LABS: Cholesterol 155 mg/dL (<200); Glucose Fasting 87 mg/dL (60-99); HDL Cholesterol 37 mg/dL (>40); LDL Cholesterol Calculated 105 mg/dL (<100); Triglycerides 67 mg/dL (<150)
[2023-11-17 15:06] LABS: TSH reflex Free T4 0.41 uIU/mL (0.32-4.0); Vitamin D 25-OH Total 20.7 ng/mL (>30)
== END 2023-11-17 11:19 | disposition home or self-care (01) ==
LOC: HO.WFDLDS 11:18
PROVIDERS: Visit Provider Nurse Practitioner Family
DX: Z00.00 Encounter for general adult medical examination without abnormal findings (principal)
CPT/HCPCS: 36415; 80061; 82306; 82947; 84443

== ENCOUNTER 2023-12-05 16:08 | Outpatient (AMB) | payer OTHER, SELFPAY ==
--- NOTE | 2023-12-05 13:48 | A.OFFPC_ITS ---
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 Is last menstrual period known: Yes Last menstrual period: 11/20/23 Post menopausal: No Patient : No Allergies acetaminophen [Theraflu Day-Night Cold,Cough] Allergy (Unknown, Verified 12/05/23 15:51) anxiety bisacodyl [Dulcolax (bisacodyl)] Allergy (Unknown, Verified 12/05/23 15:51) vomiting dextromethorphan [Theraflu Day-Night Cold,Cough] Allergy (Unknown, Verified 12/05/23 15:51) Anxiety diphenhydramine [Theraflu Day-Night Cold,Cough] Allergy (Unknown, Verified 12/05/23 15:51) Anxiety phenylephrine [Theraflu Day-Night Cold,Cough] Allergy (Unknown, Verified 12/05/23 15:51) Anxiety pseudoephedrine [Sudafed] Allergy (Unknown, Verified 12/05/23 15:51) Anxiety Tobacco use date assessed: 11/17/23 Dental Screening Dental Screen Date: 11/17/23 HPI HPI Comments History of Present Illness Details 33-year-old female [facility] for fatigue and review of recent labs She was started on vitamin D 2000 units 2 weeks ago, which she admits to taking as prescribed. She notes that she has been more fatigued since starting vitamin D. She is very tired during the day She states that she has chronic nasal congestion and she uses her mouth to breathe. She reports history of snoring at childhood but denies current snoring. She also notes history of chronic migraines; Hoahaoism was ineffective, fioricet provided relief. She currently takes Tylenol and Excedrin migraine [facility] Medical History (Updated 12/05/23 @ 16:21 by Bennett Parr CNP) Depression Anxiety Acid reflux IBS (irritable bowel syndrome) Acne Sprained ankle Sinusitis Surgical History (Updated 11/17/23 @ 11:10 by Oneyda Cazares MA) H/O tympanostomy S/P FESS (functional endoscopic sinus surgery) Hx of tonsillectomy Family History (Updated 11/17/23 @ 11:17 by Oneyda Cazares MA) Maternal Grandfather Alcohol abuse High blood pressure High cholesterol Diabetes Prostate cancer Brother FH: mental illness Mother Asthma Maternal Grandmother High blood pressure High cholesterol FH: mental illness Social History Housing: House Alcohol intake: current Alcohol intake frequency: holidays/special occasions only Patient Tobacco Use Status: Never used Tobacco e-Cigarette/Vaping Use: Never Used Second Hand Smoke Exposure: No service: No Current occupational status: employed Current occupation: [employer] Current occupational exposures/hazards: No Cognitive needs: No Hearing needs: Yes Vision needs: No Female Reproductive History Menstrual Age of Menarche: 13 Date of last menstrual period: 11/20/23 Questionnaire Thrive Questionnaire Date Thrive assessed: 11/17/23 AZ-7 AMB Questionnaire AZ-7 Date AZ - 7 assessed: 11/17/23 Source: Developed by Drs. Christopher Ramos, Elva Kaplan, Zi Moore and colleagues, with an educational mally from [employer]. Review of Systems Const Details: Const Denies chills, Reports fatigue, Denies fever(s), Denies headache(s) and Denies weakness ENT Denies dizziness and Reports headache(s) Card Denies chest pain, Denies lightheadedness, Denies dyspnea and Denies other (Palpitations) Resp Denies cough, Denies dyspnea, Denies wheezing and Denies other ( shortness of breath) GI Denies abdominal pain, Denies melena, Denies hematochezia, Denies change in bowel habits, Denies dyspepsia and Denies nausea Denies hematuria and Denies dysuria Musc Denies abnormal gait, Denies myalgias, Denies arthralgias, Denies numbness and Denies tingling Skin/Breast Denies rash, Denies unusual bruising and Denies wounds Neuro Denies abnormal gait, Denies dizziness, Reports headache(s), Denies memory loss, Denies numbness, Denies Sensory deficit (Neuro), Denies tingling and Denies weakness Endo Denies cold intolerance, Reports fatigue, Denies heat intolerance, Denies polydipsia and Denies polyuria Aller/Immun Denies wheezing Physical exam (Primary Care) Tobacco/Smoking Status: Tobacco use Status Tobacco use date assessed 11/17/23 12/05/23 13:54 Patient Tobacco Use Status Never used Tobacco 12/05/23 13:54 e-Cigarette/Vaping Use Never Used 12/05/23 13:54 Thrive Assessment: Date of Thrive Assessment Date Thrive assessed 11/17/23 12/05/23 13:54 Const Other: Telehealth visit. No physical exam Telehealth Telehealth Telehealth Platform: Telephone Location of provider rendering services: practice address Location of patient: address on file Patient Identification confirmed using: Name, : Yes Telehealth method: voice only Patient verbally consented to treatment: Yes Patient verbally consented to billing insurance company: Yes Patient informed of any privacy concerns related to visit: Yes Coding Level of Care Code Tele Est Pt Level 3 (20410) Diagnoses Vitamin D deficiency E55.9 Low HDL (under 40) E78.6 Migraine G43.909 Nasal congestion R09.81 Time Spent (min) 25 Assessment & Plan Assessment & Plan (1) Vitamin D deficiency: Code(s): E55.9 - Vitamin D deficiency, unspecified Category: Medical Plan: Recent vitamin-D level is low, 20.7 Likely a source of her fatigue She was prescribed vitamin D3 2000 units daily about 2 weeks ago; advised to continue to take as prescribed Will recheck vitamin D level and check CBC in CMP Advised to get blood work done a few days before her next visit Follow-up in 4 weeks or return sooner with worsening or new symptoms Verbalized understanding and agreed with treatment plan (2) Low HDL (under 40): Code(s): E78.6 - Lipoprotein deficiency Category: Medical Plan: Recent HDL level is slightly low, 37 Advised to limit foods high in saturated fat and avoid foods high in trans fat Routine exercise encouraged Verbalized understanding and agreed with the plan (3) Migraine: Code(s): G43.909 - Migraine, unspecified, not intractable, without status migrainosus Category: Medical Plan: She notes chronic migraine for which she currently takes Tylenol and Excedrin migraine. Sumatriptan was ineffective but fioricet was effective The headache may also be a source of her fatigue Will start phenobarbital. Advised to take as prescribed. Instructed on the risks, benefits, and potential adverse reactions of the medications Referred to neurology Follow-up with worsening or new symptoms Verbalized understanding and agreed with the plan (4) Nasal congestion: Code(s): R09.81 - Nasal congestion Category: Medical Plan: She reports chronic nasal congestion and she uses her mouth to breathe. She reports history of snoring at childhood but denies current snoring. She takes loratadine daily and uses Flonase Nasal congestion with interrupted sleep may also be a source of her fatigue She has a referral to ENT for further workup. May later refer for sleep study Continue current treatment regimen Follow-up with worsening or new symptoms Verbalized understanding and agreed with the plan Orders: Orders Vitamin D 25-OH Total 6 Weeks E55.9 - Vitamin D deficiency, unspecified Complete Blood Count Auto Diff Today R53.83 - Other fatigue Comprehensive Met. Panel Today R53.83 - Other fatigue Referrals Neurology Referral G43.909 - Migraine, unspecified, not intractable, without status migrainosus Medications: New fluticasone propionate 50 mcg/actuation administer into each nostril 2 sprays intranasal DAILY 16 grams 3RF [id number]-[id number] 50-300-40 mg (Fioricet) 1 cap PO Q4-6H PRN 30 caps 0RF pain
== END 2023-12-05 16:30 | disposition home or self-care (01) ==
LOC: HO.HMCFM 16:08
PROVIDERS: Visit Provider Nurse Practitioner Family
DX: E55.9 Vitamin D deficiency, unspecified (principal); E78.6 Lipoprotein deficiency; G43.909 Migraine, unspecified, not intractable, without status migrainosus; R09.81 Nasal congestion

== ENCOUNTER → 2023-12-05 16:08 | Outpatient (BNVA) | payer OTHER, SELFPAY | PROVIDERS: Visit Provider Nurse Practitioner Family ==

== ENCOUNTER 2024-09-03 07:29 | Outpatient (REF) | payer OTHER, SELFPAY ==
--- NOTE | ~2024-09-03 | MR_ITS ---
EXAMINATION: MR BRAIN WITHOUT CONTRAST CLINICAL INFORMATION: Migraine. COMPARISON: None available. TECHNIQUE: MRI of the brain was obtained using routine sequences without contrast. FINDINGS: No restricted diffusion. No acute intracranial hemorrhage, mass effect, midline shift, hydrocephalus or herniation. Barba-white matter differentiation is normal. Posterior cranial fossa contents demonstrated no signal abnormality or gross masses. Flow-void signal within the main vessels is normal. Soft tissue fullness with restricted diffusion in the nasopharynx. Sellar/suprasellar region demonstrated no gross masses or signal abnormality. Craniocervical junction demonstrates normal position of the cerebellar tonsils. MR/MR head/brain wo con IMPRESSION: Soft tissue fullness with restricted diffusion, posterior nasopharynx. A lymphoproliferative disorder cannot be entirely excluded. Recommend direct inspection. No acute or structural brain abnormality. Electronically signed by: Gabriel Ward MD 09/03/2024 10:01 AM EDT
--- OUTSIDE RECORDS SUMMARY | 2024-09-03 07:33 | XMS_ITS | Encounter Summary ---
Author Organization [facility] Address [address] [place] [address] Phone Care Team Providers Care Fusion Operator Name Role Phone Cece Kahn MD Primary Care Provider Unavailabl e Encounter Details Date Type Department Care Team (Late st Contact Info) Description 04/04/2011 Documentation EM Family Medicine [address] [place] [address] Family Medicine, Physician [address] [place], [place] [id number] Social History Tobacco Use Types Packs/Day Years Used Date Smoking Tobacco: Never Assessed Comments Unknown Sex and Gender Information Value Date Recorded Sex Assigned at Not on file Legal Sex Female 4:40 PM EDT Gender Identity Not on file Sexual Orientation Not on file documented as of this encounter Plan of Treatment Not on file documented as of this encounter Visit Diagnoses Not on filedocumented in this encounter Care Teams Fusion Operator Relationship Specialty Start Date End Date Cece Kahn MD PCP - General 10/07/16 documented as of this encounter
== END 2024-09-03 07:30 | disposition home or self-care (01) ==
LOC: HO.MRI 07:29
PROVIDERS: Visit Provider Psychiatry & Neurology Neurology
DX: G43.709 Chronic migraine without aura, not intractable, without status migrainosus (principal)
CPT/HCPCS: 70551

== ENCOUNTER → 2024-09-03 07:39 | Outpatient (BNV) | payer OTHER, SELFPAY | PROVIDERS: Visit Provider Radiology Diagnostic Radiology | DX: M79.89 Other specified soft tissue disorders (principal) | CPT/HCPCS: 70551 ==

== ENCOUNTER 2024-09-12 08:57 | Outpatient (AMB) | payer OTHER, SELFPAY ==
--- NOTE | 2024-09-12 08:59 | MHC.OFFVIS ---
Intake Visit Reasons: 4 weeks migraine Allergies acetaminophen (Theraflu Day-Night Cold,Cough) Allergy (Unknown, Verified 12/05/23 15:51) anxiety bisacodyl (Dulcolax (bisacodyl)) Allergy (Unknown, Verified 12/05/23 15:51) vomiting dextromethorphan (Theraflu Day-Night Cold,Cough) Allergy (Unknown, Verified 12/05/23 15:51) Anxiety diphenhydramine (Theraflu Day-Night Cold,Cough) Allergy (Unknown, Verified 12/05/23 15:51) Anxiety phenylephrine (Theraflu Day-Night Cold,Cough) Allergy (Unknown, Verified 12/05/23 15:51) Anxiety pseudoephedrine (Sudafed) Allergy (Unknown, Verified 12/05/23 15:51) Anxiety HPI Comments Details: 33 years old left-handed woman with strong family history of migraine type headaches has been having headaches since she was just few years old.? She was working in a pharmacy.? She was having headaches every day and for a while has been using ibuprofen and [id number] medicines for relief.? Pain was usually bilateral in the back of the head and neck and also in front.? It was worse with number of factors including light and noise.? It could be triggered by exposure to certain smells or food.? Despite taking these medicines frequency of headaches have not diminished.? She did not report taking any preventive medicines.? Previously she has been diagnosed with sinus and probably allergic sinus type of condition and had sinus and tonsilar surgery. With topiramate, she was better as far as headaches were concerned but she was having cough. Also she has noted decreased appetite. In addition, she complain of numbness and tingling in left hand affecting her medial 2 fingers in arm, which was consistent and not going away. [facility] Medical History (Updated 09/12/24 @ 09:11 by Garland Rogers MD) Migraine without aura Depression Anxiety Acid reflux IBS (irritable bowel syndrome) Acne Sprained ankle Sinusitis Surgical History (Updated 11/17/23 @ 11:10 by Oneyda Cazares MA) H/O tympanostomy S/P FESS (functional endoscopic sinus surgery) Hx of tonsillectomy Family History (Updated 11/17/23 @ 11:17 by Oneyda Cazares MA) Maternal Grandfather Alcohol abuse High blood pressure High cholesterol Diabetes Prostate cancer Brother FH: mental illness Mother Asthma Maternal Grandmother High blood pressure High cholesterol FH: mental illness Social History Housing: House Alcohol intake: current Alcohol intake frequency: holidays/special occasions only Patient Tobacco Use Status: Never used Tobacco e-Cigarette/Vaping Use: Never Used Second Hand Smoke Exposure: No service: No Current occupational status: employed Current occupation: [employer] Current occupational exposures/hazards: No Cognitive needs: No Hearing needs: Yes Vision needs: No Female Reproductive History Menstrual Age of Menarche: 13 Review of Systems Const Details: Constitutional:?No fever, chills, fatigue, weight loss, or night sweats. HEENT:?No vision changes, hearing loss, nasal congestion, sore throat. Neurological:? Complain of headaches Psychiatric:?No anxiety, depression, mood swings, sleep disturbance, or hallucinations. Endocrine:?No heat/cold intolerance, polydipsia, polyuria, or hair/skin changes. Hematologic/Lymphatic:?No easy bruising, bleeding, or lymphadenopathy. Integumentary (Skin):?No rash, lesions, itching, or color changes. ? Physical Exam Neuro Other: Mental Status: Alert and oriented to person, place, and time. Normal attention. Normal spontaneous speech, fluency, and comprehension. No obvious issues with mood and memory. Affect is appropriate. Cranial Nerves: CN II: Visual west full to confrontation, visual acuity intact. CN III, IV, : Pupils equal, round, reactive to light and accommodation. Extraocular movements are normal. CN V: Facial sensation is normal. CN VII: Facial movements symmetrical. CN VIII: Hearing intact to bedside conversation is normal. CN IX, X: Palate elevates symmetrically. CN XI: Shoulder shrug and head turn symmetrical. CN XII: Tongue midline without atrophy or fasciculations. Extrapyramidal: Full facial expressions and blinking. No rigidity. Movements are appropriate with no tremor or abnormality. Speech: Normal; no dysarthria or tremor. Assessment & Plan Assessment & Plan (1) Migraine without aura, intractable, without status migrainosus: Comment: [place] [facility]: Brain ok. Soft tissue in nasopharynx Code(s): G43.019 - Migraine without aura, intractable, without status migrainosus Category: Medical (2) Numbness of left hand: Code(s): R20.0 - Anesthesia of skin Category: Medical Plan Impression: a: Migraine w/o aura b: Cough with soft tissue nasopharynx lesion noted on brain MRI c: Cough, that might be related to b. d: Left hand numbness suggestive of ulnar neuropathy Rec: a: May stop topiramte for a week to see if it is causing cough. If not, may continue as it is helping with headaches. b: ENT consultation for inspection of evaluation of oropharynx lesion c: EMG/NCS left hand/arm d: Ibuprufen PRN for acute treatment for headache Orders: Orders NE nerve conduction velocity Today R20.0 - Anesthesia of skin NE electromyogram (EMG) Today R20.0 - Anesthesia of skin Medications: New topiramate 25 mg PO DAILY 90 tabs 0RF Coding Level of Care Code Tele Est Pt Level 5 (23365) Diagnoses Migraine without aura, intractable, without status migrainosus G43.019 Numbness of left hand R20.0
--- OUTSIDE RECORDS SUMMARY | 2024-09-12 09:17 | XMS_ITS | Encounter Summary ---
Author Organization [facility] Address [address] [place] [phone] Phone Care Team Providers Care Finishing Machine Operator Name Role Phone Cece Kahn MD Primary Care Provider Unavailabl e Encounter Details Date Type Department Care Team (Late st Contact Info) Description 04/04/2011 Documentation EM Family Medicine [address] [place] [address] Family Medicine, Physician [address] [place], [place] [phone] Social History Tobacco Use Types Packs/Day Years [...] on filedocumented in this encounter Care Teams Finishing Machine Operator Relationship Specialty Start Date End Date Cece Kahn MD PCP - General 10/07/16 documented as of this encounter
== END 2024-09-12 09:15 | disposition home or self-care (01) ==
LOC: HO.HSM 08:58
PROVIDERS: PCP Nurse Practitioner Family; Visit Provider Psychiatry & Neurology Neurology
DX: G43.019 Migraine without aura, intractable, without status migrainosus (principal); R20.0 Anesthesia of skin
CPT/HCPCS: 99214

== ENCOUNTER 2024-10-10 08:56 | Outpatient (REF) | payer OTHER, SELFPAY ==
--- NOTE | 2024-10-10 09:07 | EMG_ITS ---
Bilateral median and ulnar motor and sensory studies were performed bilateral radial sensory and median and lateral antecubital brachial sensory studies were performed. EMG needle examination was performed on both sides. Impression: Mild left ulnar nerve slowing across elbow. Otherwise no significant pathology noted. MTDD
--- OUTSIDE RECORDS SUMMARY | 2024-10-10 09:15 | XMS_ITS | Encounter Summary ---
Author Organization [facility] Address [address] [place] [phone] Phone Care Team Providers Care Pre School Teacher Name Role Phone Cece Kahn MD Primary Care Provider Unavailabl e Encounter Details Date Type Department Care Team (Late st Contact Info) Description 04/04/2011 Documentation EM Family Medicine [address] [place] [address] Family Medicine, Physician [address] [place], [place] [id number] Social History Tobacco Use Types Packs/Day Years [...] on filedocumented in this encounter Care Teams Pre School Teacher Relationship Specialty Start Date End Date Cece Kahn MD PCP - General 10/07/16 documented as of this encounter
--- OUTSIDE RECORDS SUMMARY | 2024-10-10 09:15 | XMS_ITS | Clinical Summary ---
Author Organization [facility] Address [address] [address] Phone Care Team Providers Care Special Machine Operator Name Role Phone Ramana Carlisle Primary Care Provider + Allergies No known active allergies Medications No known medications Active Problems No known active problems Social History Tobacco Use Types Packs/Day Years Used Date Smoking Tobacco: Never Assessed Education Answer Date Recorded Are you interested in more education? Not on howard e 11/08/2022 Are you concerned about learning? Not on file 11/08/2022 No 11/08/2022 No 11/08/2022 Digital Access Answer Date Recorded No 11/08/2022 No 11/08/2022 Reliable internet access at home? Not on file 11/08/2022 Device with a working camera? Not on file Comments Unknown Sex and Gender Information Value Date Recorded Sex Assigned at Not on file Legal Sex Female 4:59 PM EDT Gender Identity Not on file Sexual Orientation Not on file Plan of Treatment Health Maintenance Due Date Last Done Comments DEPRESSION SCREENING 2002 SMOKING Hx and SMOKELESS TOBACCO SCREENING 11/16/2003 HEPATITIS C SCREENING 2008 HIV ONE-TIME SCREENING (18-65 YEARS) 2008 PAP SMEAR 11/16/2011 COVID-19 VACCINE ( season) 2023 01/15/2022, 01/15/2021, 03/18/2020, Additional history exists Adult Td,Tdap Booster 08/21/2028 08/21/2018, 019 HEPATITIS A VACCINES Aged Out No long er eligible based on patient's age to complete this topic HIB VACCINES Aged Out No longer eligi ble based on patient's age to complete this topic MENINGOCOCCAL VACCINES (ACWY) Aged Out No longer eligible based on patient's age to complete this topic MENINGOCOCCAL VACCINES (B) Aged Out N o longer eligible based on patient's age to complete this topic PNEUMOCOCCAL VACCINES (0-49 years) Aged Out No longer eligible based on patient's age to complete this topic Medical Devices Not on file [facility] Care Teams Special Machine Operator Relationship Specialty Start Date End Date Ramana Carlisle PA [facility] [place] [address] PCP - General Physician Straightener 11/08/22 Additional Source Comments The information contained in this document represents components of the legal health record. It is not the complete legal health record.[facility]
== END 2024-10-10 08:57 | disposition home or self-care (01) ==
LOC: HO.NEURO 08:56
PROVIDERS: PCP Nurse Practitioner Family; Visit Provider Psychiatry & Neurology Neurology
DX: R20.0 Anesthesia of skin (principal)
CPT/HCPCS: 95886; 95913

== ENCOUNTER → 2024-10-10 09:07 | Outpatient (BNV) | payer OTHER, SELFPAY | PROVIDERS: PCP Nurse Practitioner Family; Visit Provider Psychiatry & Neurology Neurology | DX: G56.22 Lesion of ulnar nerve, left upper limb (principal) | CPT/HCPCS: 95886; 95913 ==